=== PATIENT | male | born 1995 | race Caucasian/White ===

== ENCOUNTER 2017-06-01 12:28 | Emergency (ER) | payer OTHER ==
[2017-06-01 14:33] VITALS: BP 126/64
--- NOTE | 2017-06-01 14:39 | UC ---
Skin Complaint HPI - HPI Summary HPI Summary: c/o rash in right groin area for 2 weeks. somewhat itchy but more painful. Went to [facility] and adolfo used which seemed to have made it worse. seems to be spreading now. havent taken anything otc for treatment. - History of Current Complaint Chief Complaint: UCSkin Time Seen by Provider: 06/01/17 14:11 Stated Complaint: PERSONAL Hx Obtained From: Patient Onset/Duration: Lasting Weeks Skin Exposure Onset/Duration: Days Ago Onset Severity: Severe Current Severity: Severe Pain Scale Used: 0-10 Numeric - 4/10 Location: Other - right groin Character: Pruritus, Pain Aggravating Factor(s): Touch Associated Signs & Symptoms: Positive: Negative - no - Allergy/Home Medications Allergies/Adverse Reactions: Allergies Allergy/AdvReac Type Severity Reaction Status Date / Time No Known Allergies Allergy Verified 06/01/17 14:33 Review of Systems Constitutional: Negative Skin: Rash - right groin with blisters and open area Eyes: Negative ENT: Negative Respiratory: Negative Cardiovascular: Negative Gastrointestinal: Negative Genitourinary: Negative Motor: Negative Neurovascular: Negative Musculoskeletal: Negative Neurological: Negative Psychological: Negative Is Patient Immunocompromised?: No All Other Systems Reviewed And Are Negative: Yes PMH/Surg Hx/FS Hx/Imm Hx Previously Healthy: Yes - Surgical History Surgical History: Yes Surgery Procedure, Year, and Place: tonsilectomy - Social History Alcohol Use: Weekly Substance Use Type: None Smoking Status (MU): Current Every Day Smoker Type: eCigarettes Amount Used/How Often: daily usage Length of Time of Smoking/Using Tobacco: started in 02/14 Physical Exam Triage Information Reviewed: Yes Appearance: Well-Appearing, No Pain Distress, Well-Nourished Vital Signs: Initial Vital Signs Temp 98.2 F 06/01/17 14:26 Pulse 67 06/01/17 14:26 Resp 14 06/01/17 14:26 BP 126/64 06/01/17 14:26 Pulse Ox 99 06/01/17 14:26 Vital Signs Reviewed: Yes Eyes: Positive: Conjunctiva Clear Respiratory Exam: Normal Respiratory: Positive: Chest non-tender, Lungs clear, Normal breath sounds, No respiratory distress Cardiovascular Exam: Normal Cardiovascular: Positive: RRR, No Murmur Abdominal Exam: Normal Abdomen Description: Positive: Nontender Musculoskeletal Exam: Normal Psychological Exam: Normal Psychological: Positive: Normal Response To Family, Age Appropriate Behavior Course/Dx - Course Course Of Treatment: increase fluid intake while on medication. take as directed full course. no topical ointment/cream to area. f/u with pcp in 1 week if symptoms not resolving - Diagnoses Provider Diagnoses: shingles Discharge - Discharge Plan Condition: Stable Disposition: HOME Prescriptions: Acyclovir* [Zovirax 400 MG TAB*] 800 mg PO QID 5 Days #20 tab
== END 2017-06-01 14:49 | disposition home or self-care (01) ==
LOC: UCCORT 12:28
DX: B02.9 Zoster without complications (principal); F17.210 Nicotine dependence, cigarettes, uncomplicated
CPT/HCPCS: 99202; G0463